=== PATIENT | female | born 1960 | race Caucasian/White ===

== ENCOUNTER → 2017-09-10 | Outpatient (CLI) | payer OTHER | END | disposition home or self-care (01) | LOC: RESCLI 12:57 | DX: Z12.31 Encounter for screening mammogram for malignant neoplasm of breast (principal); J02.9 Acute pharyngitis, unspecified ==

== ENCOUNTER → 2020-05-09 | Outpatient (CLI) | payer OTHER | END | disposition home or self-care (01) | LOC: ORTHO 06:59 | PROVIDERS: ATTEND Orthopaedic Surgery | DX: M25.461 Effusion, right knee (principal) ==

== ENCOUNTER 2021-10-16 09:27 | Emergency (ER) | payer OTHER ==
[~2021-10-16] VITALS: Ht 160 cm; Wt 63.0 kg
[2021-10-16] MEDS ORDERED: CYCLOBENZAPRINE5 M3 PO (14:40)
[2021-10-16] MEDS ORDERED: PREDNISONE20 M1 PO (14:40)
[2021-10-16] MEDS ORDERED: HYDROCODONE-AC1 EAC1 PO (14:41)
== END 2021-10-16 14:51 | disposition home or self-care (01) ==
LOC: ED 09:27
DX: S39.012A Strain of muscle, fascia and tendon of lower back, initial encounter (principal); X50.1XXA Overexertion from prolonged static or awkward postures, initial encounter; Y93.89 Activity, other specified; Y92.89 Other specified places as the place of occurrence of the external cause; Y99.8 Other external cause status

== ENCOUNTER → 2023-03-18 | Outpatient (CLI) | payer OTHER ==
[~2023-03-18] MED LIST: CYCLOBENZAPRINE5 M3 PO; HYDROCODONE-AC1 EAC1 PO; PREDNISONE20 M1 PO
== END | disposition home or self-care (01) ==
LOC: RESCLI 02:20
PROVIDERS: ATTEND Internal Medicine
DX: M85.80 Other specified disorders of bone density and structure, unspecified site (principal); L80 Vitiligo; E78.5 Hyperlipidemia, unspecified; F41.9 Anxiety disorder, unspecified; Z71.89 Other specified counseling; R73.9 Hyperglycemia, unspecified; Z41.8 Encounter for other procedures for purposes other than remedying health state; Z85.41 Personal history of malignant neoplasm of cervix uteri; Z90.710 Acquired absence of both cervix and uterus; Z80.3 Family history of malignant neoplasm of breast